=== PATIENT | female | born 1975 | race Caucasian/White ===

== ENCOUNTER 2018-03-24 19:32 | Emergency (ER) | payer OTHER ==
--- NOTE | 2018-03-24 19:47 | ER Document Report ---
ED General - General Stated Complaint: POSSIBLE OVERDOSE Time Seen by Provider: 03/24/18 19:36 Cannot obtain history due to: Intoxicated, Altered mental status Notes: Patient is a 42-year-old female with unknown past medical history who presents by EMS after ingesting an unknown quantity of alprazolam and Lunesta. The patient apparently did this just prior to 6 PM. These are not her prescriptions and family as well as EMS are uncertain of the quantity that she took. The prescriptions are from late January. The patient is unable to provide meaningful history as she is acutely intoxicated with the above sedating substances, unable to tell me how many she took or the motivation behind making her take what appears to be an overdose. The significant other on scene did apparently report that they have been arguing and had contacted EMS after realizing the patient had apparently taken his medications. The patient does also have several self-inflicted scratches along her left wrist. History is otherwise limited secondary to the degree of the patient's intoxication - Related Data Allergies/Adverse Reactions: codeine [Codeine] Allergy (Verified 09/28/12 19:44) Past Medical History - General Information source: Emergency Med Personnel Cannot obtain history due to: Intoxicated, Altered mental status - Social History Smoking Status: Unknown if Ever Smoked Drug Abuse: Prescription drugs Family History: Reviewed & Not Pertinent Musculoskeletal Medical History: Reports Hx Arthritis Psychiatric Medical History: Reports: Hx Depression Past Surgical History: Reports: Hx Gynecologic Surgery - tubal, Hx Tubal Ligation - Immunizations Hx Diphtheria, Pertussis, Tetanus Vaccination: Yes Review of Systems - Review of Systems -: Yes ROS unobtainable due to patient's medical condition Physical Exam - Vital signs Vitals: Resp BP Pulse Ox 25 H 100/67 94 03/24/18 19:39 03/24/18 19:39 03/24/18 19:39 Interpretation: Normal Notes: PHYSICAL EXAMINATION: GENERAL: Lethargic, appears to be acutely intoxicated on sedating substances. In no acute distress HEAD: Atraumatic, normocephalic. EYES: Pupils equal round and reactive to light, extraocular movements intact, sclera anicteric, conjunctiva are normal. ENT: nares patent, oropharynx clear without exudates. Moderately dry mucous me mbranes. NECK: Normal range of motion, supple without lymphadenopathy LUNGS: Breath sounds clear to auscultation bilaterally and equal. No wheezes rales or rhonchi. HEART: Regular rate and rhythm without murmurs ABDOMEN: Soft, nontender, normoactive bowel sounds. No guarding, no rebound. No masses appreciated. EXTREMITIES: Normal range of motion, no pitting or edema. No cyanosis. NEUROLOGICAL: No focal neurological deficits. Moves all extremities spontaneously and on command. PSYCH: Lethargic but does keep her eyes open and responds slowly although incomprehensibly to questions. Is able to state her name. SKIN: Warm, Dry, normal turgor, no rashes or lesions noted. Course - Re-evaluation Re-evalutation: 03/24/18 19:46 Patient presents by EMS due to an acute intentional overdose on alprazolam and Lunesta of unknown quantity. She is protecting her airway without difficulty at time of presentation. Vitals are within normal limits without hypoxia, hypoventilation or tachycardia. She is not hypotensive. Initial EKG unremarkable. Standard psychiatric screening laboratories will be completed. Screening physical examination unremarkable. Patient was monitored and then cleared for psychiatric assessment when she has become more clinically sober. An IVC has been placed. 03/24/18 23:37 Patient has remained without hypotension, bradycardia or tachycardia. Screening laboratories unremarkable. Maintain saturations of 97% on room air. The patient is cleared for evaluation and disposition by behavioral health services in the morning. - Vital Signs Vital signs: Temp Pulse Resp BP Pulse Ox 28 H 108/73 98 03/24/18 21:02 03/24/18 20:17 03/24/18 21:02 - Laboratory Result Diagrams: 03/24/18 19:55 03/24/18 19:55 Laboratory results interpreted by me: 03/24/18 03/24/18 03/24/18 19:55 19:55 20:16 Seg Neutrophils % 80.6 H Lymphocytes % 11.8 L Absolute Neutrophils 8.3 H Chloride 108 H Urine Blood LARGE H Salicylates < 1.0 L Acetaminophen < 10 L - EKG Interpretation by Me Additional EKG results interpreted by me: 03/24/18 19:47 Sinus rhythm. Rate 82. No ST elevations or depressions. QTC is 435. Discharge - Discharge Clinical Impression: Self-injurious behavior Polysubstance overdose Qualifiers: Encounter type: initial encounter Injury intent: intentional self-harm Qualified Code(s): T50.902A - Poisoning by unspecified drugs, medicaments and biological substances, intentional self-harm, initial encounter Laceration of left wrist Qualifiers: Encounter type: initial encounter Qualified Code(s): S61.512A - Laceration without foreign body of left wrist, initial encounter Condition: Stable Referrals: LOCALMD,NO [NO LOCAL MD] - Follow up as needed
[2018-03-24 20:04] LABS: ABSOLUTE BASOPHILS # (AUTO) 0.1 10^3/uL (0.0-0.2); ABSOLUTE EOSINOPHILS # (AUTO) 0.1 10^3/uL (0.0-0.6); ABSOLUTE LYMPHOCYTES (AUTO) 1.2 10^3/uL (0.5-4.7); ABSOLUTE MONOCYTES (AUTO) 0.6 10^3/uL (0.1-1.4); ABSOLUTE NEUT (AUTO) 8.3 10^3/uL (1.7-8.2); BASOPHILS % (AUTO) 0.8 % (0-2); EOSINOPHILS % (AUTO) 1.1 % (0-6); HEMATOCRIT 38.4 % (36.0-47.0); LYMPHOCYTES % (AUTO) 11.8 % (13-45); MEAN CORPUSCULAR HEMOGLOBIN 30.6 pg (27.0-33.4); MEAN CORPUSCULAR HGB CONC 33.8 g/dL (32.0-36.0); MEAN CORPUSCULAR VOLUME 91 fl (80-97); MONOCYTES % (AUTO) 5.7 % (3-13); PLATELET COUNT 258 10^3/uL (150-450); RED BLOOD COUNT 4.24 10^6/uL (3.72-5.28); RED CELL DISTRIBUTION WIDTH 13.3 % (11.5-14.0); SEGMENTED NEUTROPHILS % (AUTO) 80.6 % (42-78); TOTAL CELLS COUNTED % (AUTO) 100 %; WHITE BLOOD COUNT 10.3 10^3/uL (4.0-10.5)
[2018-03-24 20:15] LABS: ALANINE AMINOTRANSFERASE 21 U/L (9-52); ALBUMIN 4.3 g/dL (3.5-5.0); ALKALINE PHOSPHATASE 72 U/L (38-126); ANION GAP 8 (5-19); ASPARTATE AMINO TRANSFERASE 23 U/L (14-36); BILIRUBIN,DIRECT 0.2 mg/dL (0.0-0.4); BILIRUBIN,TOTAL 0.3 mg/dL (0.2-1.3); BLOOD UREA NITROGEN 12 mg/dL (7-20); CALCIUM 9.4 mg/dL (8.4-10.2); CARBON DIOXIDE 24 mmol/L (22-30); CHLORIDE 108 mmol/L (98-107); GLUCOSE 100 mg/dL (75-110); POTASSIUM 4.2 mmol/L (3.6-5.0); SODIUM 140.3 mmol/L (137-145)
[2018-03-24 20:18] LABS: ACETAMINOPHEN < 10 ug/mL (10-30); ALCOHOL < 10 mg/dL (NONE DETECTED); SALICYLATE < 1.0 mg/dL (2.0-20.0)
[2018-03-24 21:05] LABS: APPEARANCE,URINE CLEAR; BILIRUBIN,URINE NEGATIVE (NEGATIVE); COLOR,URINE STRAW; GLUCOSE, URINE NEGATIVE (NEGATIVE); KETONES,URINE NEGATIVE (NEGATIVE); LEUKOCYTE ESTERASE,URINE NEGATIVE (NEGATIVE); NITRITE,URINE NEGATIVE (NEGATIVE); PROTEIN,URINE NEGATIVE (NEGATIVE); URINE SPECIFIC GRAVITY 1.003; UROBILINOGEN,URINE NEGATIVE mg/dL (<2.0)
[2018-03-24 21:18] LABS: URINE AMPHETAMINES SCREEN NEGATIVE; URINE BARBITURATES SCREEN NEGATIVE; URINE BENZODIAZEPINES SCREEN UNCONFIRMED POSITIVE; URINE COCAINE SCREEN NEGATIVE; URINE MARIJUANA (THC) SCREEN NEGATIVE; URINE METHADONE SCREEN NEGATIVE; URINE PHENCYCLIDINE SCREEN NEGATIVE
[2018-03-24] MEDS ORDERED: DIPH/PERTUSS(ACELL)/TETANUS VAC/PF 0.5 ML SYR (>=10YO) IM ONE (23:38)
[2018-03-25] MEDS ORDERED: HALOPERIDOL LACTATE INJ 5 MG/1 ML VIAL IM ONE (03:00)
[2018-03-25] MEDS ORDERED: DIPH/PERTUSS(ACELL)/TETANUS VAC/PF 0.5 ML SYR (>=10YO) IM ONE (06:30)
[2018-03-25] MEDS ORDERED: NORMAL SALINE 1000 ML 1,000 ML IV ONE ×3 (07:39→11:46)
--- NOTE | 2018-03-25 07:55 | ER Document Report ---
Doctor's Note Notes: 03/25/18 07:54 Was asked to see the patient this morning patient had a blood pressure of 76 systolic. Patient overdosed on Xanax. She is still very somnolent. She is very small and likely runs low blood pressures normally we will give her a liter of IV fluids. We will recheck her. 03/25/18 12:28 Patient is doing much better and has tried to elope from the department. Security has brought her back. We will IVC her. Her blood pressure is better due to her petite stature likely she runs low all the time. She had no dizziness or any other abnormalities when trying to flee the emergency department. She is medically clear for any kind of inpatient psychiatric care she would require. I spoke with Dr. Barragan about the patient she will evaluate. We await their consultation
[2018-03-25] MEDS ORDERED: HYDROCORTISONE SOD SUCCINATE INJ/PF 100 MG/2 ML SDV IV ONE (08:39)
--- NOTE | 2018-03-25 09:11 | ER Document Report ---
Doctor's Note Notes: Patient turned over to Dr. Cuevas. He saw and evaluated the patient.
--- NOTE | 2018-03-25 12:50 | EKG REPORT ---
SEVERITY:- BORDERLINE ECG - SINUS RHYTHM PROBABLE LEFT ATRIAL ABNORMALITY : Confirmed by: Vicenta Joya 25-Mar-2018 12:50:25
--- NOTE | 2018-03-26 09:08 | ER Document Report ---
Doctor's Note Notes: Patient seen and evaluated by myself. Patient's vital signs are stable. No issues per nursing overnight. Patient overdosed on Xanax. She is more awake and alert than she was yesterday. Patient did try to run out of the emergency department yesterday. Patient says that she is feeling fine and wants to be discharged. Denies suicidal ideations, homicidal ideations, delusions, hallucinations. Awaiting behavioral health recommendations. 03/26/18 15:42 [facility] was able to find the patient's placement at [facility]. Transport was arranged. Patient is stable for transfer.
[2018-03-26 16:25] VITALS: BP 119/60
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
== END 2018-03-26 16:10 ==
LOC: ER 19:32
DX: S61.512A Laceration without foreign body of left wrist, initial encounter (principal); T42.4X2A Poisoning by benzodiazepines, intentional self-harm, initial encounter; T42.6X2A Poisoning by other antiepileptic and sedative-hypnotic drugs, intentional self-harm, initial encounter; Y92.009 Unspecified place in unspecified non-institutional (private) residence as the place of occurrence of the external cause; Z98.51 Tubal ligation status; Z88.6 Allergy status to analgesic agent
CPT/HCPCS: 93005; 99285; 96372; 96361; 96374; 36415; 80307 ×4; 84703; 85025; 80053; 81001; 93010; J1630; J1720; J7030